=== PATIENT | male | born 1955 | race Asian ===

== ENCOUNTER 2021-11-11 15:12 | Inpatient (IN) | payer BC, OTHER ==
[~2021-11-11] VITALS: Ht 170.2 cm; Wt 66.2 kg
[2021-11-11 15:24] VITALS: BP_SYST 126
[2021-11-11 16:27] LABS: MEAN CORPUSCULAR VOLUME 89 fL (79.0-98.0); WHITE BLOOD COUNT (AUTO) 9.3 K/uL (4.8-10.8)
[2021-11-11 16:31] LABS: HEMATOCRIT 43.3 % (36-54); PLATELET COUNT (AUTO) 235 K/uL (130-430); RED BLOOD CELL COUNT(AUTO) 4.85 MIL/uL (4.2-6.2); RED CELL DISTRIBUTION WIDTH 13.8 % (9.0-15.0)
[2021-11-11 16:46] LABS: ANION GAP 7 (5-15); CALCIUM 9.3 mg/dL (8.4-11.0); CHLORIDE 102 mmol/L (98-107); CREATININE 0.97 mg/dL (0.55-1.30); GLUCOSE 89 mg/dL (70-99); POTASSIUM 3.8 mmol/L (3.5-5.1); UREA NITROGEN, BLOOD 12 mg/dL (8-21)
[2021-11-11 16:54] LABS: GFR AFRICAN AMERICAN 100 mL/min (>90)
[2021-11-11 16:55] LABS: ALANINE AMINOTRANSFERASE 26 U/L (12-78); ALBUMIN 3.7 g/dL (3.4-4.8); ASPARTATE AMINOTRANSFERASE 13 U/L (10-37); TOTAL BILIRUBIN 0.5 mg/dL (0.0-1.0)
[2021-11-11 17:18] LABS: ATYPICAL LYMPHOCYTES % 50 % (0-0); LYMPHOCYTES % (MANUAL) 61 % (20-46)
[2021-11-11 17:19] LABS: EOSINOPHILS % (MANUAL) 3 % (0-7); MONOCYTES % (MANUAL) 6 % (0-11)
[2021-11-11] MEDS ORDERED: ASPIRIN 325 MG TABLET PO ONE (18:00)
[2021-11-11] MEDS ORDERED: DICL75TA5 PO (19:17)
[2021-11-11] MEDS ORDERED: TAMS-11 PO (19:17)
[2021-11-11] MEDS ORDERED: AMLO5TAB4 PO (19:17)
[2021-11-11] MEDS ORDERED: ASPI-1155 PO (19:17)
[2021-11-11] MEDS ORDERED: FINA5TAB3 PO (19:17)
[2021-11-11 21:42] VITALS: BP_SYST 128
[2021-11-12] VITALS: BP_SYST 108
[2021-11-12 06:37] LABS: CALCIUM 8.8 mg/dL (8.4-11.0); CREATININE 0.93 mg/dL (0.55-1.30); POTASSIUM 3.6 mmol/L (3.5-5.1)
[2021-11-12 07:00] LABS: TOTAL BILIRUBIN 0.7 mg/dL (0.0-1.0)
[2021-11-12 07:11] LABS: BASOPHILS # (AUTO) 0.1 K/uL (0.0-0.2); BASOPHILS % (AUTO) 0.7 % (0.0-2.0); EOSINOPHILS # (AUTO) 0.2 K/uL (0.0-0.4); EOSINOPHILS % (AUTO) 2.4 % (0.0-4.0); HEMATOCRIT 41.2 % (36-54); LYMPHOCYTES # (AUTO) 5.5 K/uL (1.0-5.5); LYMPHOCYTES % (AUTO) 64.6 % (20.5-51.5); MEAN CORPUSCULAR VOLUME 90 fL (79.0-98.0); MONOCYTES # (AUTO) 0.2 K/uL (0.0-1.0); MONOCYTES % (AUTO) 2.2 % (1.7-9.3); NEUTROPHILS # (AUTO) 2.6 K/uL (1.8-7.7); PLATELET COUNT (AUTO) 234 K/uL (130-430); RED BLOOD CELL COUNT(AUTO) 4.59 MIL/uL (4.2-6.2); RED CELL DISTRIBUTION WIDTH 13.8 % (9.0-15.0); WHITE BLOOD COUNT (AUTO) 8.6 K/uL (4.8-10.8)
[2021-11-12 07:30] VITALS: BP_SYST 132
[2021-11-12 08:25] LABS: NEUTROPHILS % (AUTO) 30.1 % (40.0-70.0)
[2021-11-12] MEDS ORDERED: TAMS-11 PO (08:30)
[2021-11-12] MEDS ORDERED: DICL75TA5 PO (08:30)
[2021-11-12] MEDS ORDERED: AMLO5TAB4 PO (08:30)
[2021-11-12] MEDS ORDERED: ASA81 PO (08:30)
[2021-11-12] MEDS ORDERED: FINA5TAB3 PO (08:30)
[2021-11-12] MEDS ORDERED: amLODIPine BESYLATE 5 MG TABLET PO SCH (09:00)
[2021-11-12] MEDS ORDERED: ASPIRIN 81 MG TAB.CHEW PO SCH (09:00)
[2021-11-12] MEDS ORDERED: DICLOFENAC SODIUM 25 MG TABLET.DR PO PRN (09:00)
[2021-11-12] MEDS ORDERED: FINASTERIDE 5 MG TABLET (PROSCAR) PO SCH ×2 (09:00→12:52)
[2021-11-12 11:15] VITALS: BP_SYST 131
[2021-11-12 12:45] VITALS: BP_SYST 131
[2021-11-12] MEDS ORDERED: TAMSULOSIN HCL 0.4 MG CAP PO SCH (21:00)
[2021-11-14] MEDS ORDERED: FINASTERIDE 5 MG TABLET (PROSCAR) PO SCH (09:00)
== END 2021-11-12 13:20 | disposition home or self-care (01) | DRG 313 ==
LOC: SED 15:12 → STU 18:45
PROVIDERS: ADMIT Internal Medicine; ATTEND Internal Medicine
DX: R07.9 Chest pain, unspecified (principal); I10 Essential (primary) hypertension; Z20.822 Contact with and (suspected) exposure to COVID-19; Z90.49 Acquired absence of other specified parts of digestive tract; Z87.891 Personal history of nicotine dependence
CPT/HCPCS: 36415; 71045; 80053; 84484; 85007; 85025; 85027; 93005; 99285; G0378